=== PATIENT | male | born 1955 | race African-American/Black ===

== ENCOUNTER 2017-10-11 14:36 | Inpatient (IN) | payer MEDICAID, OTHER ==
[~2017-10-11] VITALS: Ht 170.2 cm; Wt 72.6 kg
[~2017-10-11 14:36] MED LIST: ACC10 PO; EFAV1TAB3 PO; IBUP-2030 PO
[2017-10-11] MEDS ORDERED: VANCOMYCIN 1 G PREMIX 200 ML IV SCH (22:45)
[2017-10-11] MEDS ORDERED: PIPERACILLIN/TAZ 3.375G PREMIX 50 ML IV ONE (22:45)
[2017-10-11] MEDS ORDERED: LEVOFLOXACIN 750MG PREMIX 150 ML IV ONE (23:15)
[2017-10-11] MEDS ORDERED: METRONIDAZOLE 500 MG PREMIX 100 ML IV ONE (23:15)
[2017-10-11 23:20] LABS: CHLORIDE 102 mEq/L (98-107)
[2017-10-11 23:21] LABS: BASOPHILS % 0.6 % (0.0-2.0); EOSINOPHILS % 2.4 % (0.0-5.0); HEMATOCRIT. 29.5 % (42.0-52.0); HEMOGLOBIN. 9.8 g/dL (14.0-18.0); LYMPHOCYTES % 16.6 % (20.0-50.0); MEAN CORPUSCULAR HEMOGLOBIN 28.3 pg (28.0-32.0); MEAN CORPUSCULAR VOLUME 85.1 fL (80.0-94.0); MEAN PLATELET VOLUME 6.5 fl (7.4-10.4); MONOCYTES % 13.1 % (2.0-8.0); NEUTROPHILS % 67.3 % (40.0-76.0); PLATELET 500 x1000/uL (130-400); RED BLOOD CELL COUNT 3.46 mill/uL (4.7-6.1); RED CELL DISTRIBUTION WIDTH 14.4 % (11.6-14.6)
[2017-10-11 23:26] LABS: PROTHROMBIN TIME 10.4 sec (9.4-11.6)
[2017-10-12] MEDS ORDERED: SODIUM CHLORIDE 0.9% 1000ML BAG (SEPSIS BOLUS) IV ONE
[2017-10-12 00:42] LABS: CLARITY URINE CLEAR (CLEAR); COLOR URINE YELLOW (YELLOW); KETONES URINE NEGATIVE (NEGATIVE); LEUKOCYTE ESTERASE URINE NEGATIVE (NEGATIVE); NITRITE URINE NEGATIVE (NEGATIVE); OCCULT BLOOD URINE NEGATIVE (NEGATIVE); PROTEIN URINE 1+ (NEGATIVE); SPECIFIC GRAVITY URINE 1.017 (1.005-1.030); UROBILINOGEN URINE 0.2 E.U./dL (0.2-1.0)
[2017-10-12] MEDS ORDERED: METRONIDAZOLE 500 MG PREMIX 100 ML IV NR (05:45)
[2017-10-12 12:00] VITALS: BP 112/76
[2017-10-12 12:45] VITALS: BP 109/73
[2017-10-12] MEDS ORDERED: HYDROMORPHONE HCL/PF 2MG/ML CPJ IV PRN (12:45)
[2017-10-12] MEDS ORDERED: DIPHENHYDRAMINE 50MG/ML VIAL IV PRN (12:45)
[2017-10-12] MEDS ORDERED: PIPERACILLIN/TAZ 3.375G PREMIX 50 ML IV SCH (12:45)
[2017-10-12] MEDS ORDERED: ACETAMINOPHEN 325MG TABLET PO PRN (12:45)
[2017-10-12] MEDS ORDERED: ONDANSETRON HCL 4MG/2ML VIAL IV PRN (12:45)
[2017-10-12] MEDS: AMLODIPINE 10MG TABLET PO SCH (14:00)
[2017-10-12] MEDS: ENOXAPARIN 30MG/0.3ML SYR SUBCUT SCH (14:00)
[2017-10-12 16:00] VITALS: BP 95/55
[2017-10-12] MEDS: SODIUM CHLORIDE 0.9% 1,000 ML IV SCH (16:48)
[2017-10-12 20:00] VITALS: BP 92/52
[2017-10-13] VITALS: BP 101/52
[2017-10-13 04:00] VITALS: BP 96/61
[2017-10-13 07:16] LABS: HEMOGLOBIN. 8.4 g/dL (14.0-18.0); MEAN CORPUSCULAR HEMOGLOBIN 27.6 pg (28.0-32.0); MEAN CORPUSCULAR VOLUME 84.8 fL (80.0-94.0); MEAN PLATELET VOLUME 6.5 fl (7.4-10.4); PLATELET 461 x1000/uL (130-400); RED BLOOD CELL COUNT 3.06 mill/uL (4.7-6.1); RED CELL DISTRIBUTION WIDTH 14.5 % (11.6-14.6)
[2017-10-13 08:00] VITALS: BP 115/73
[2017-10-13] MEDS: AMLODIPINE 10MG TABLET PO SCH (08:05)
[2017-10-13 08:55] LABS: CHLORIDE 107 mEq/L (98-107)
[2017-10-13] MEDS ORDERED: SODIUM POLYSTYRENE SULFONATE 15 G/60 ML BOT PO NR (09:45)
[2017-10-13] MEDS: SODIUM CHLORIDE 0.9% 1,000 ML IV SCH (10:00)
[2017-10-13 11:00] LABS: PLATELET ESTIMATE INCREASED
[2017-10-13 12:00] VITALS: BP 102/66
[2017-10-13] MEDS: ENOXAPARIN 30MG/0.3ML SYR SUBCUT SCH (14:06)
[2017-10-13] MEDS: VANCOMYCIN 1 G PREMIX 200 ML IV SCH (14:12)
[2017-10-13 16:00] VITALS: BP 127/85
[2017-10-13 20:00] VITALS: BP 131/85
[2017-10-14] VITALS: BP 96/67
[2017-10-14 04:00] VITALS: BP 101/62
[2017-10-14] MEDS ORDERED: LEVOFLOXACIN 250MG PREMIX 50 ML IV SCH (06:00)
[2017-10-14 08:00] VITALS: BP 112/74
[2017-10-14] MEDS: AMLODIPINE 10MG TABLET PO SCH (09:00)
[2017-10-14] MEDS: SODIUM CHLORIDE 0.9% 1,000 ML IV SCH (09:30)
[2017-10-14] MEDS: VANCOMYCIN 1 G PREMIX 200 ML IV SCH (09:31)
[2017-10-14] MEDS ORDERED: LIDOCAINE HCL 1% 20ML VIAL (Pyxis) INJ ONE (11:31)
[2017-10-14 12:00] VITALS: BP 121/83
[2017-10-14 16:00] VITALS: BP 124/82
[2017-10-14] MEDS: ENOXAPARIN 30MG/0.3ML SYR SUBCUT SCH (16:29)
[2017-10-14 20:00] VITALS: BP 132/84
[2017-10-15] VITALS: BP 144/72
[2017-10-15 04:00] VITALS: BP 138/87
[2017-10-15 07:13] LABS: BASOPHILS % 0.6 % (0.0-2.0); EOSINOPHILS % 1.4 % (0.0-5.0); HEMATOCRIT. 26.9 % (42.0-52.0); HEMOGLOBIN. 8.9 g/dL (14.0-18.0); LYMPHOCYTES % 18.8 % (20.0-50.0); MEAN CORPUSCULAR HEMOGLOBIN 28.1 pg (28.0-32.0); MEAN CORPUSCULAR VOLUME 85.1 fL (80.0-94.0); MEAN PLATELET VOLUME 6.2 fl (7.4-10.4); MONOCYTES % 12.2 % (2.0-8.0); PLATELET 527 x1000/uL (130-400); RED BLOOD CELL COUNT 3.16 mill/uL (4.7-6.1); RED CELL DISTRIBUTION WIDTH 14.1 % (11.6-14.6)
[2017-10-15 08:00] VITALS: BP 134/89
[2017-10-15] MEDS: VANCOMYCIN 1 G PREMIX 200 ML IV SCH (09:48)
[2017-10-15] MEDS: AMLODIPINE 10MG TABLET PO SCH (09:49)
[2017-10-15 12:00] VITALS: BP 111/75
[2017-10-15] MEDS: ENOXAPARIN 30MG/0.3ML SYR SUBCUT SCH (14:29)
[2017-10-15 16:00] VITALS: BP 124/82
[2017-10-15] MEDS: LEVOFLOXACIN 250MG PREMIX 50 ML IV SCH (17:29)
[2017-10-15 20:00] VITALS: BP 113/79
[2017-10-15] MEDS: SODIUM CHLORIDE 0.9% 1,000 ML IV SCH (21:01)
[2017-10-16] VITALS: BP 114/77
[2017-10-16 04:00] VITALS: BP 109/71
[2017-10-16] MEDS: SODIUM CHLORIDE 0.9% 1,000 ML IV SCH ×3 (05:45→09:39)
[2017-10-16 08:00] VITALS: BP 98/63
[2017-10-16] MEDS ORDERED: VANCOMYCIN 1250MG in DEXTROSE 5% WATER 250ML IV SCH (09:00)
[2017-10-16] MEDS ORDERED: TENOFOVIR PO SCH (09:00)
[2017-10-16] MEDS ORDERED: EMTRICITAB PO SCH (09:00)
[2017-10-16] MEDS ORDERED: EFAVIRENZ PO SCH (09:00)
[2017-10-16] MEDS: AMLODIPINE 10MG TABLET PO SCH (09:38)
[2017-10-16] MEDS: TENOFOVIR 300MG TABLET PO SCH (11:00)
[2017-10-16] MEDS: EFAVIRENZ 600MG TABLET PO SCH (11:00)
[2017-10-16] MEDS: EMTRICITABINE 200MG CAPSULE PO SCH (11:00)
[2017-10-16 12:00] VITALS: BP 113/69
[2017-10-16] MEDS: ENOXAPARIN 40MG/0.4ML SYR SUBCUT SCH (14:00)
[2017-10-16 16:00] VITALS: BP 119/67
[2017-10-16] MEDS: LEVOFLOXACIN 250MG PREMIX 50 ML IV SCH (19:53)
[2017-10-16 20:00] VITALS: BP 125/82
[2017-10-17] VITALS (7 sets, daily range): BP systolic 112–130; BP diastolic 58–80
[2017-10-17] MEDS: SODIUM CHLORIDE 0.9% 1,000 ML IV SCH ×3 (02:05→22:30)
[2017-10-17] MEDS: DOCUSATE SODIUM 100MG CAPSULE PO PRN (07:33)
[2017-10-17] MEDS: EFAVIRENZ 600MG TABLET PO SCH ×2 (09:00→15:12)
[2017-10-17] MEDS: TENOFOVIR 300MG TABLET PO SCH ×2 (09:00→15:10)
[2017-10-17] MEDS: EMTRICITABINE 200MG CAPSULE PO SCH ×2 (09:00→15:11)
[2017-10-17] MEDS: VANCOMYCIN 1,250 MG in SODIUM CHLORIDE 0.9% 250 ML IV SCH (09:58)
[2017-10-17] MEDS: AMLODIPINE 10MG TABLET PO SCH (10:00)
[2017-10-17 12:22] LABS: BASOPHILS % 0.3 % (0.0-2.0); EOSINOPHILS % 0.9 % (0.0-5.0); HEMATOCRIT. 26.4 % (42.0-52.0); HEMOGLOBIN. 8.7 g/dL (14.0-18.0); LYMPHOCYTES % 12.1 % (20.0-50.0); MEAN CORPUSCULAR HEMOGLOBIN 28.4 pg (28.0-32.0); MEAN CORPUSCULAR VOLUME 85.7 fL (80.0-94.0); MEAN PLATELET VOLUME 6.1 fl (7.4-10.4); MONOCYTES % 8.3 % (2.0-8.0); NEUTROPHILS % 78.4 % (40.0-76.0); PLATELET 556 x1000/uL (130-400); RED BLOOD CELL COUNT 3.08 mill/uL (4.7-6.1); RED CELL DISTRIBUTION WIDTH 14.3 % (11.6-14.6)
[2017-10-17] MEDS: ENOXAPARIN 40MG/0.4ML SYR SUBCUT SCH (15:13)
[2017-10-17] MEDS ORDERED: LEVO750T21 PO (16:00)
[2017-10-17] MEDS: LEVOFLOXACIN 250MG PREMIX 50 ML IV SCH (16:12)
[2017-10-17] MEDS: ABACAVIR SULFATE 300MG TABLET PO SCH (18:00)
[2017-10-17] MEDS: SULFAMETHOXAZOLE/TRIMETHOPRIM 800/160MG TABLET PO SCH (18:00)
[2017-10-17] MEDS: EDURANT 25 MG PO SCH (18:00)
[2017-10-17] MEDS: PREZCOBIX PO SCH (18:00)
[2017-10-18] VITALS: BP 108/64
[2017-10-18 04:00] VITALS: BP 121/80
[2017-10-18] MEDS: DOCUSATE SODIUM 100MG CAPSULE PO PRN (05:12)
[2017-10-18 08:00] VITALS: BP 108/60
[2017-10-18] MEDS: PREZCOBIX PO SCH (09:00)
[2017-10-18] MEDS: ABACAVIR SULFATE 300MG TABLET PO SCH (09:00)
[2017-10-18] MEDS: EDURANT 25 MG PO SCH (09:00)
[2017-10-18] MEDS: VANCOMYCIN 1,250 MG in SODIUM CHLORIDE 0.9% 250 ML IV SCH (09:20)
[2017-10-18] MEDS: AMLODIPINE 10MG TABLET PO SCH (09:27)
[2017-10-18] MEDS: SULFAMETHOXAZOLE/TRIMETHOPRIM 800/160MG TABLET PO SCH (09:27)
== END 2017-10-18 11:37 | disposition home or self-care (01) | DRG 539 ==
LOC: ER 14:36 → 6EST 10-12 00:34 → EDBEDREQSVC 10-12 01:37 → EDBEDREQTM 10-12 07:35 → EDBEDREQSVC 10-12 07:35 → EDBEDREQ 10-12 10:20 → EDBEDREQSVC 10-12 10:20 → EDBEDREQTM 10-12 10:20 → ENRESERV 10-12 11:32 → ER 10-12 11:58
PROVIDERS: ADMIT Hospitalist; ATTEND Hospitalist
PROC: 02HV33Z Insertion of Infusion Device into Superior Vena Cava, Percutaneous Approach (ICD-10-PCS; principal; 2017-10-14)
PROC: B548ZZA Ultrasonography of Superior Vena Cava, Guidance (ICD-10-PCS; 2017-10-14)
DX: M86.171 Other acute osteomyelitis, right ankle and foot (principal); B20 Human immunodeficiency virus [HIV] disease; N17.9 Acute kidney failure, unspecified; I96 Gangrene, not elsewhere classified; L97.513 Non-pressure chronic ulcer of other part of right foot with necrosis of muscle; I10 Essential (primary) hypertension; Z88.0 Allergy status to penicillin; Z91.19 Patient's noncompliance with other medical treatment and regimen; Z89.421 Acquired absence of other right toe(s); Z79.899 Other long term (current) drug therapy
CPT/HCPCS: 36415; 36569; 71045; 73630; 73721; 76937; 80048; 80053; 80202; 81003; 83605; 85025; 85610; 87040; 87070; 87077; 87186; 87205; 93005; 96365; 96366; 96375; 97162; 99285; C1725; C1893; J1200; J1650; J1956; J3370; J3490; J7030; J7040; J7050; J7060

== ENCOUNTER 2017-10-30 14:58 | Emergency (ER) | payer OTHER ==
[~2017-10-30] VITALS: Ht 193 cm; Wt 82.0 kg
[~2017-10-30 14:58] MED LIST changes: +LEVO750T21 PO
[2017-10-30 20:11] LABS: BASOPHILS % 0.7 % (0.0-2.0); HEMATOCRIT. 27.8 % (42.0-52.0); HEMOGLOBIN. 9.3 g/dL (14.0-18.0); LYMPHOCYTES % 28.2 % (20.0-50.0); MEAN CORPUSCULAR HEMOGLOBIN 28.4 pg (28.0-32.0); MEAN CORPUSCULAR VOLUME 85.3 fL (80.0-94.0); MEAN PLATELET VOLUME 5.5 fl (7.4-10.4); MONOCYTES % 9.7 % (2.0-8.0); NEUTROPHILS % 58.4 % (40.0-76.0); PLATELET 374 x1000/uL (130-400); RED BLOOD CELL COUNT 3.26 mill/uL (4.7-6.1); RED CELL DISTRIBUTION WIDTH 15.2 % (11.6-14.6)
[2017-10-30 20:17] LABS: CHLORIDE 112 mEq/L (98-107)
[2017-10-30 23:22] LABS: CLARITY URINE CLEAR (CLEAR); COLOR URINE YELLOW (YELLOW); KETONES URINE NEGATIVE (NEGATIVE); LEUKOCYTE ESTERASE URINE NEGATIVE (NEGATIVE); NITRITE URINE NEGATIVE (NEGATIVE); OCCULT BLOOD URINE NEGATIVE (NEGATIVE); PH URINE 7.5 (4.5-8.0); PROTEIN URINE TRACE (NEGATIVE); SPECIFIC GRAVITY URINE 1.016 (1.005-1.030); UROBILINOGEN URINE 0.2 E.U./dL (0.2-1.0)
[2017-10-31 01:18] VITALS: BP 128/91
== END 2017-10-31 01:17 | disposition home or self-care (01) ==
LOC: ER 14:58
DX: M86.8X7 Other osteomyelitis, ankle and foot (principal); R79.89 Other specified abnormal findings of blood chemistry; Z13.89 Encounter for screening for other disorder; I10 Essential (primary) hypertension; Z89.421 Acquired absence of other right toe(s); Z88.0 Allergy status to penicillin
CPT/HCPCS: 36415; 80053; 80202; 81003; 85025; 99284

== ENCOUNTER 2025-05-06 08:06 | Emergency (ER) | payer MEDICARE ==
[~2025-05-06] VITALS: Ht 188 cm; Wt 85.0 kg
[~2025-05-06 08:06] MED LIST changes: -ACC10 PO; +AMLO5TAB88 PO; +FERR-63 PO; -IBUP-2030 PO; -LEVO750T21 PO; +TAMS-54 PO
[2025-05-06 08:11] VITALS: O2SAT 99
[2025-05-06 08:13] VITALS: BP 181/127; PULSE 94; RESP 18; TEMP 36.8; O2SAT 100
[2025-05-06] MEDS ORDERED: TAMS-54 PO (08:22)
== END 2025-05-06 08:30 | disposition home or self-care (01) ==
LOC: ER 08:06
DX: R33.9 Retention of urine, unspecified (principal); Z46.6 Encounter for fitting and adjustment of urinary device; Z91.148 Patient's other noncompliance with medication regimen for other reason; Z79.624 Long term (current) use of inhibitors of nucleotide synthesis; Z79.899 Other long term (current) drug therapy; Z88.1 Allergy status to other antibiotic agents; Z88.0 Allergy status to penicillin
CPT/HCPCS: 99281; 99282

== ENCOUNTER 2025-05-08 05:39 | Emergency (ER) | payer MEDICARE ==
[~2025-05-08] VITALS: Ht 193 cm; Wt 88.1 kg
[2025-05-08 05:44] VITALS: O2SAT 100
[2025-05-08] MEDS: LIDOCAINE 2% 6ML GLYDO MM STA (05:55)
[2025-05-08 06:00] VITALS: TEMP 36.9
[2025-05-08 06:59] LABS: CLARITY URINE TURBID (CLEAR); COLOR URINE YELLOW (YELLOW); GLUCOSE URINE NEGATIVE (NEGATIVE); KETONES URINE NEGATIVE (NEGATIVE); LEUKOCYTE ESTERASE URINE 3+ (NEGATIVE); NITRITE URINE NEGATIVE (NEGATIVE); OCCULT BLOOD URINE 1+ (NEGATIVE); PH URINE 6.0 (4.5-8.0); PROTEIN URINE 2+ (NEGATIVE); SPECIFIC GRAVITY URINE 1.011 (1.005-1.030); UROBILINOGEN URINE 0.2 E.U./dL (0.2-1.0)
[2025-05-08 07:20] LABS: WBC URINE TNTC /hpf (0-2)
[2025-05-08 07:21] LABS: RBC URINE 0-2 /hpf (0-2); SQUAMOUS EPITHELIAL CELL URINE NONE SEEN /lpf (RARE/1+)
[2025-05-08 07:22] LABS: BACTERIA URINE 4+
[2025-05-08] MEDS: CEPHALEXIN 250MG CAPSULE PO ONE (08:17)
[2025-05-08] MEDS ORDERED: CEPH500C2 MT (08:19)
[2025-05-08 08:36] VITALS: BP 168/102; PULSE 94; RESP 14; O2SAT 97
== END 2025-05-08 08:42 | disposition home or self-care (01) ==
LOC: ER 06:04
DX: R33.9 Retention of urine, unspecified (principal); R10.20 Pelvic and perineal pain unspecified side; I10 Essential (primary) hypertension; Z79.624 Long term (current) use of inhibitors of nucleotide synthesis; Z88.0 Allergy status to penicillin
CPT/HCPCS: 51702; 81003; 87077; 87186; 99284